=== PATIENT | female | born 1960 | race Asian ===

== ENCOUNTER 2016-10-14 09:33 | Emergency (ER) | payer MEDICAID, MEDICARE ==
[~2016-10-14] VITALS: Ht 152.4 cm; Wt 94.5 kg
[~2016-10-14 09:33] MED LIST: ALBU8HFA IH; AMBR5TAB3 PO; AMLO-512 PO; BUDE10.22 IH; CARV10CR PO; FURO40 PO; LOSA50TA37 PO; PRAV20TA4 PO; SYMB8060 IH; TADA20TA31 PO; WARF2.5 PO
[2016-10-14] MEDS ORDERED: DEXAMETHASONE SOD PHOS 4 MG/ML 5 ML VIAL IM ONE (10:15)
[2016-10-14] MEDS ORDERED: DiphenhydrAMINE HCL 50 MG/ML VIAL IM ONE (10:15)
[2016-10-14 10:48] VITALS: BP 114/80
== END 2016-10-14 10:53 | disposition home or self-care (01) ==
LOC: EMS 09:35
DX: T78.3XXA Angioneurotic edema, initial encounter (principal); L29.9 Pruritus, unspecified; E11.9 Type 2 diabetes mellitus without complications; I51.9 Heart disease, unspecified; I11.9 Hypertensive heart disease without heart failure; J44.9 Chronic obstructive pulmonary disease, unspecified; J45.909 Unspecified asthma, uncomplicated; F17.210 Nicotine dependence, cigarettes, uncomplicated; M10.9 Gout, unspecified; Z90.710 Acquired absence of both cervix and uterus; X58.XXXA Exposure to other specified factors, initial encounter; Z85.42 Personal history of malignant neoplasm of other parts of uterus; Y93.89 Activity, other specified; Y92.89 Other specified places as the place of occurrence of the external cause; Y99.9 Unspecified external cause status
CPT/HCPCS: 82962; 96372; 99284; J1100; J1200

== ENCOUNTER 2017-08-30 14:11 | Inpatient (IN) | payer MEDICARE ==
[~2017-08-30] VITALS: Ht 149.9 cm; Wt 100.0 kg
[~2017-08-30 14:11] MED LIST changes: -ALBU8HFA IH; -AMBR5TAB3 PO; -BUDE10.22 IH; -CARV10CR PO; -LOSA50TA37 PO; -PRAV20TA4 PO; -SYMB8060 IH; -TADA20TA31 PO; -WARF2.5 PO
[2017-08-30] MEDS ORDERED: ALLO100T PO (14:22)
[2017-08-30] MEDS ORDERED: POTA99TA25 PO (14:22)
[2017-08-30 14:24] LABS: GLUCOSE,POINT OF CARE 245 MG/DL (70-110)
[2017-08-30 15:51] LABS: APPEARANCE,URINE CLOUDY (CLEAR); BILIRUBIN,URINE NEGATIVE (NEGATIVE); GLUCOSE, URINE (UA) NEGATIVE (NEGATIVE); KETONES,URINE NEGATIVE (NEGATIVE); LEUKOCYTE ESTERASE ,URINE SMALL (NEGATIVE); NITRATE,URINE NEGATIVE (NEGATIVE); OCCULT BLOOD,URINE NEGATIVE (NEGATIVE); PH,URINE 6.5 (5.0-8.0); PROTEIN,URINE SEE CONFIRM (NEGATIVE)
[2017-08-30 15:57] LABS: SULFOSALICYLIC ACID,URINE 2+ (Negative)
[2017-08-30 15:58] LABS: RBC,URINE 0-2 /HPF (0-2)
[2017-08-30 15:59] LABS: SQUAMOUS EPITHELIAL CELL,UR Few /LPF (None Seen)
[2017-08-30 16:00] LABS: BACTERIA,URINE Moderate /HPF (None Seen)
[2017-08-30 16:22] LABS: EOSINOPHILS % (AUTO) 1.8 % (1.0-6.0); HEMATOCRIT 51.6 % (36-46); HEMOGLOBIN 16.8 g/dL (12.0-16.0); LYMPHOCYTES % (AUTO) 15.2 % (22.0-44.0); MEAN CORPUSCULAR HEMOGLOBIN 26.6 pg (26.0-34.0); MEAN CORPUSCULAR HGB CONC 32.6 G/dL (31.0-37.0); MEAN CORPUSCULAR VOLUME 81 fL (80-100); MONOCYTES # (AUTO) 0.8 K/uL (0.1-1.0); MONOCYTES % (AUTO) 11.3 % (2.0-9.0); NEUTROPHILS # (AUTO) 4.7 K/uL (1.8-7.7); NEUTROPHILS % (AUTO) 70.7 % (40.0-70.0); PLATELET COUNT (AUTO) 232 K/uL (150-450); RED BLOOD CELL COUNT(AUTO) 6.34 MIL/uL (4.00-5.20); RED CELL DISTRIBUTION WIDTH 16.7 % (11.5-14.5)
[2017-08-30 16:33] LABS: PROTHROMBIN TIME 10.7 SEC (9.4-11.6)
[2017-08-30 16:35] LABS: ANION GAP 4 mmol/L (8-16); CALCIUM, TOTAL 8.8 mg/dL (8.8-10.5); CARBON DIOXIDE 33 mmol/L (22-29); CHLORIDE 102 mmol/L (98-107); CREATININE 1.83 mg/dL (0.60-1.30); GLOMERULAR FILTR. RATE CALC 28 mL/min (>60); GLUCOSE,RANDOM 122 mg/dL (70-110); POTASSIUM 3.3 mmol/L (3.5-5.1); SODIUM SERUM 139 mmol/L (136-145); UREA NITROGEN, BLOOD 33 mg/dL (7-18)
[2017-08-30 16:41] LABS: ALANINE AMINOTRANSFERASE 28 U/L (12-78); ALBUMIN 3.1 g/dL (3.4-5.0); ALKALINE PHOSPHATASE 141 U/L (46-116); ASPARTATE AMINOTRANSFERASE 31 U/L (15-37); BILIRUBIN,TOTAL 0.8 mg/dL (0.1-1.0); CREATINE KINASE, TOTAL 71 U/L (26-192); TOTAL PROTEIN, SERUM 7.9 g/dL (6.4-8.2)
[2017-08-30 16:49] LABS: B-TYPE NATRIURETIC PEPTIDE 231 pg/mL (0-100)
[2017-08-30] MEDS ORDERED: LEVOFLOXACIN 500 MG/D5% WATER 100 ML IV ONE (18:15)
[2017-08-30] MEDS ORDERED: IPRATROPIUM BROMIDE 0.5 MG/2.5 ML NEB SOLUTION NEB PRN (18:45)
[2017-08-30] MEDS ORDERED: ONDANSETRON HCL 4 MG/2 ML VIAL IVP PRN (18:45)
[2017-08-30] MEDS ORDERED: ALBUTEROL SULFATE 2.5 MG/0.5 ML NEB SOLUTION NEB PRN (18:45)
[2017-08-30] MEDS ORDERED: MAGNESIUM HYDROXIDE SUSPENSION 30 ML UDCUP PO PRN (18:45)
[2017-08-30] MEDS ORDERED: 0.9% SODIUM CHLORIDE 10 ML SYRINGE IVP PRN (18:45)
[2017-08-30] MEDS ORDERED: INSULIN LISPRO 100 UNITS/ML SQ PRN (19:00)
[2017-08-30] MEDS ORDERED: DEXTROSE 50%-WATER 25 GM/50 ML SYRINGE IVP PRN (19:00)
[2017-08-30 20:18] VITALS: BP 151/76
[2017-08-30] MEDS: HEPARIN SODIUM,PORCINE 5,000 UNITS/ML VIAL SQ SCH (20:26)
[2017-08-30] MEDS: ATORVASTATIN CALCIUM 40 MG TABLET PO SCH (20:27)
[2017-08-30] MEDS: ASPIRIN 81 MG CHEWABLE TABLET PO SCH (20:27)
[2017-08-30 23:36] VITALS: BP 103/63
[2017-08-31] VITALS (8 sets, daily range): BP systolic 110–143; BP diastolic 66–89
[2017-08-31 07:13] LABS: BASOPHILS % (AUTO) 0.9 % (0.0-2.0); EOSINOPHILS % (AUTO) 2.8 % (1.0-6.0); HEMATOCRIT 48.2 % (36-46); HEMOGLOBIN 15.7 g/dL (12.0-16.0); LYMPHOCYTES # (AUTO) 1.1 K/uL (1.0-4.8); LYMPHOCYTES % (AUTO) 21.2 % (22.0-44.0); MEAN CORPUSCULAR HEMOGLOBIN 26.8 pg (26.0-34.0); MEAN CORPUSCULAR HGB CONC 32.6 G/dL (31.0-37.0); MEAN CORPUSCULAR VOLUME 82 fL (80-100); MONOCYTES # (AUTO) 0.6 K/uL (0.1-1.0); MONOCYTES % (AUTO) 11.8 % (2.0-9.0); NEUTROPHILS # (AUTO) 3.3 K/uL (1.8-7.7); NEUTROPHILS % (AUTO) 63.3 % (40.0-70.0); PLATELET COUNT (AUTO) 207 K/uL (150-450); RED BLOOD CELL COUNT(AUTO) 5.87 MIL/uL (4.00-5.20)
[2017-08-31 07:24] LABS: HEMOGLOBIN A1C 6.3 % (4.5-6.2)
[2017-08-31 07:56] LABS: ALBUMIN 2.8 g/dL (3.4-5.0); BILIRUBIN,TOTAL 0.7 mg/dL (0.1-1.0); CALCIUM, TOTAL 8.3 mg/dL (8.8-10.5); CHOL/HDL RATIO 2.9 (3.9-5.7); CREATININE 1.66 mg/dL (0.60-1.30); FREE T4 (FREE THYROXINE) 1.05 ng/dL (0.76-1.46); MAGNESIUM 2.2 mg/dL (1.80-2.40); POTASSIUM 3.4 mmol/L (3.5-5.1)
[2017-08-31] MEDS: AmLODIPine BESYLATE 10 MG TABLET PO SCH (09:10)
[2017-08-31] MEDS: ATORVASTATIN CALCIUM 40 MG TABLET PO SCH (09:10)
[2017-08-31] MEDS: ALLOPURINOL 100 MG TABLET PO SCH (09:10)
[2017-08-31] MEDS: PANTOPRAZOLE SODIUM 40 MG DR TABLET PO SCH (09:10)
[2017-08-31] MEDS: ASPIRIN 81 MG CHEWABLE TABLET PO SCH (09:10)
[2017-08-31] MEDS: HEPARIN SODIUM,PORCINE 5,000 UNITS/ML VIAL SQ SCH ×2 (09:11→20:29)
[2017-08-31] MEDS: FUROSEMIDE 20 MG TABLET PO SCH (09:14)
[2017-08-31] MEDS ORDERED: *CLINICAL-LEVOFLOXACIN IVPB DOSING CLINICAL ONE (14:30)
[2017-08-31] MEDS ORDERED: FURO20 PO (14:31)
[2017-08-31] MEDS ORDERED: SODIUM CHLORIDE 0.9% 100 ML ONE (15:50)
[2017-08-31] MEDS ORDERED: LEVOFLOXACIN 250 MG/D5% WATER 50 ML IV SCH (16:00)
[2017-08-31 20:43] LABS: GLUCOMETER DEV NAME(LOC) 5S 1M; GLUCOSE,POINT OF CARE 111 MG/DL (70-110)
[2017-08-31 20:43] LABS: GLUCOMETER DEV NAME(LOC) 5S 2Q; GLUCOSE,POINT OF CARE 100 MG/DL (70-110)
[2017-08-31 20:44] LABS: GLUCOMETER DEV NAME(LOC) 5S 1M; GLUCOSE,POINT OF CARE 96 MG/DL (70-110)
[2017-08-31 20:44] LABS: GLUCOMETER DEV NAME(LOC) 5S 1M; GLUCOSE,POINT OF CARE 142 MG/DL (70-110)
[2017-08-31] MEDS: ACETAMINOPHEN 325 MG TABLET PO PRN (21:40)
[2017-09-01 03:44] VITALS: BP 128/76
[2017-09-01] MEDS: ACETAMINOPHEN 325 MG TABLET PO PRN (05:00)
[2017-09-01 07:18] VITALS: BP 132/71
[2017-09-01] MEDS: ALLOPURINOL 100 MG TABLET PO SCH (08:33)
[2017-09-01] MEDS: HEPARIN SODIUM,PORCINE 5,000 UNITS/ML VIAL SQ SCH (08:33)
[2017-09-01] MEDS: ATORVASTATIN CALCIUM 40 MG TABLET PO SCH (08:33)
[2017-09-01] MEDS: AmLODIPine BESYLATE 10 MG TABLET PO SCH (08:33)
[2017-09-01] MEDS: ASPIRIN 81 MG CHEWABLE TABLET PO SCH (08:33)
[2017-09-01] MEDS: FUROSEMIDE 20 MG TABLET PO SCH (08:33)
[2017-09-01] MEDS: PANTOPRAZOLE SODIUM 40 MG DR TABLET PO SCH (08:34)
[2017-09-01 08:42] LABS: CALCIUM, TOTAL 8.3 mg/dL (8.8-10.5); CREATININE 1.63 mg/dL (0.60-1.30); POTASSIUM 3.5 mmol/L (3.5-5.1)
[2017-09-01 11:54] VITALS: BP 122/62
[2017-09-01 12:24] LABS: GLUCOMETER DEV NAME(LOC) 5S 2Q; GLUCOSE,POINT OF CARE 68 MG/DL (70-110)
[2017-09-01 12:24] LABS: GLUCOMETER DEV NAME(LOC) 5S 2Q; GLUCOSE,POINT OF CARE 109 MG/DL (70-110)
[2017-09-01 12:25] LABS: GLUCOMETER DEV NAME(LOC) 5S 2Q; GLUCOSE,POINT OF CARE 131 MG/DL (70-110)
[2017-09-01] MEDS ORDERED: LEVO250 PO (12:26)
== END 2017-09-01 13:50 | disposition home or self-care (01) | DRG 312 ==
LOC: EMS 14:13 → 5S 18:06 → INTOOBSV 18:06 → OBSVTOIN 08-31 17:30
PROVIDERS: ADMIT Internal Medicine; ATTEND Internal Medicine
DX: R55 Syncope and collapse (principal); J96.11 Chronic respiratory failure with hypoxia; I27.20 Pulmonary hypertension, unspecified; I11.0 Hypertensive heart disease with heart failure; I50.9 Heart failure, unspecified; Z99.81 Dependence on supplemental oxygen; Z68.41 Body mass index [BMI] 40.0-44.9, adult; N39.0 Urinary tract infection, site not specified; M10.9 Gout, unspecified; E11.9 Type 2 diabetes mellitus without complications; I25.10 Atherosclerotic heart disease of native coronary artery without angina pectoris; E66.9 Obesity, unspecified; J44.9 Chronic obstructive pulmonary disease, unspecified; M19.90 Unspecified osteoarthritis, unspecified site; F17.210 Nicotine dependence, cigarettes, uncomplicated; Z90.710 Acquired absence of both cervix and uterus; Z88.1 Allergy status to other antibiotic agents; Z88.8 Allergy status to other drugs, medicaments and biological substances; Z79.899 Other long term (current) drug therapy; Z85.42 Personal history of malignant neoplasm of other parts of uterus; Z82.49 Family history of ischemic heart disease and other diseases of the circulatory system; Z83.3 Family history of diabetes mellitus
CPT/HCPCS: 70450; 83036; 83735; 84100; 84145; 84439; 84443; 87086; 93005; 93306; 96365; 96366; 96372; 97116; 97162; 99285; J1644; J1956; J7050

== ENCOUNTER 2018-10-20 22:05 | Inpatient (IN) | payer MEDICARE ==
[~2018-10-20] VITALS: Ht 152.4 cm; Wt 107.0 kg
[~2018-10-20 22:05] MED LIST changes: +ALLO100T PO; -AMLO-512 PO; +AMLO10TA7 PO; +FURO20 PO; -FURO40 PO; +LEVO250 PO; +POTA99TA25 PO
[2018-10-20] MEDS ORDERED: LOSA25TA41 PO (22:27)
[2018-10-20] MEDS ORDERED: SILD20TA PO (22:27)
[2018-10-20] MEDS ORDERED: MACI10TA PO (22:27)
[2018-10-20] MEDS ORDERED: BUTE12CR TP (22:49)
[2018-10-20] MEDS ORDERED: DILT180C94 PO (22:49)
[2018-10-20] MEDS ORDERED: FUROSEMIDE 40 MG/4 ML VIAL IVP ONE (23:30)
[2018-10-20 23:46] LABS: APPEARANCE,URINE CLOUDY (CLEAR); BILIRUBIN,URINE NEGATIVE (NEGATIVE); GLUCOSE, URINE (UA) NEGATIVE (NEGATIVE); KETONES,URINE NEGATIVE (NEGATIVE); LEUKOCYTE ESTERASE ,URINE NEGATIVE (NEGATIVE); NITRATE,URINE NEGATIVE (NEGATIVE); OCCULT BLOOD,URINE NEGATIVE (NEGATIVE); PROTEIN,URINE SEE CONFIRM (NEGATIVE)
[2018-10-20 23:53] LABS: SULFOSALICYLIC ACID,URINE 1+ (Negative)
[2018-10-20 23:54] LABS: BACTERIA,URINE None Seen /HPF (None Seen); RBC,URINE None Seen /HPF (0-2); SQUAMOUS EPITHELIAL CELL,UR Many /LPF (None Seen)
[2018-10-21 00:14] LABS: MONOCYTES # (AUTO) 0.5 K/uL (0.1-1.0); NEUTROPHILS # (AUTO) 5.6 K/uL (1.8-7.7)
[2018-10-21] MEDS ORDERED: NITROGLYCERIN 2% (1 GM=INCH) PACKET TP ONE (00:15)
[2018-10-21 00:18] LABS: BASOPHILS % (AUTO) 1.1 % (0.0-2.0); EOSINOPHILS % (AUTO) 1.7 % (1.0-6.0); HEMATOCRIT 53.4 % (36-46); HEMOGLOBIN 16.7 g/dL (12.0-16.0); LYMPHOCYTES % (AUTO) 13.7 % (22.0-44.0); MEAN CORPUSCULAR HEMOGLOBIN 28.2 pg (26.0-34.0); MEAN CORPUSCULAR HGB CONC 31.3 G/dL (31.0-37.0); MEAN CORPUSCULAR VOLUME 90 fL (80-100); MONOCYTES % (AUTO) 7.5 % (2.0-9.0); RED BLOOD CELL COUNT(AUTO) 5.93 MIL/uL (4.00-5.20); RED CELL DISTRIBUTION WIDTH 16.7 % (11.5-14.5)
[2018-10-21 00:21] LABS: CALCIUM, TOTAL 9.3 mg/dL (8.8-10.5); CREATININE 1.77 mg/dL (0.60-1.30); POTASSIUM 3.7 mmol/L (3.5-5.1)
[2018-10-21 00:27] LABS: ALBUMIN 3.6 g/dL (3.4-5.0); BILIRUBIN,TOTAL 0.6 mg/dL (0.1-1.0); TOTAL PROTEIN, SERUM 7.7 g/dL (6.4-8.2)
[2018-10-21 00:37] LABS: PLATELET COUNT (AUTO) 175 K/uL (150-450)
[2018-10-21] MEDS ORDERED: ZOLPIDEM TARTRATE 5 MG TABLET PO PRN (01:00)
[2018-10-21] MEDS ORDERED: MAGNESIUM HYDROXIDE SUSPENSION 30 ML UDCUP PO PRN (01:00)
[2018-10-21] MEDS ORDERED: BISACODYL 10 MG RECTAL RECTAL SUPPOSITORY PR PRN (01:00)
[2018-10-21] MEDS ORDERED: MORPHINE SULFATE 2 MG/ML SYRINGE IVP PRN (01:00)
[2018-10-21] MEDS ORDERED: ACETAMINOPHEN 325 MG TABLET PO PRN (01:00)
[2018-10-21] MEDS ORDERED: ALBUTEROL SULFATE 2.5 MG/0.5 ML NEB SOLUTION NEB PRN (01:00)
[2018-10-21] MEDS ORDERED: ONDANSETRON HCL 4 MG/2 ML VIAL IVP PRN (01:00)
[2018-10-21] MEDS ORDERED: HYDROCODONE/ACETAMINOPHEN 5-325 MG TABLET PO PRN (01:00)
[2018-10-21] MEDS ORDERED: IPRATROPIUM BROMIDE 0.5 MG/2.5 ML NEB SOLUTION NEB PRN (01:00)
[2018-10-21] MEDS: AZITHROMYCIN 500 MG/NS 250 ML IV SCH (01:23)
[2018-10-21] MEDS: ALBUTEROL SULFATE 2.5 MG/0.5 ML NEB SOLUTION NEB SCH ×4 (02:57→20:16)
[2018-10-21] MEDS: IPRATROPIUM BROMIDE 0.5 MG/2.5 ML NEB SOLUTION NEB SCH ×4 (02:57→20:16)
[2018-10-21] MEDS: MethylPREDNISolone SOD SUCC 125 MG/2 ML VIAL IVP SCH ×3 (05:29→17:38)
[2018-10-21] MEDS: HEPARIN SODIUM,PORCINE 5,000 UNITS/ML VIAL SQ SCH ×2 (07:22→15:50)
[2018-10-21 08:04] LABS: GLUCOSE,POINT OF CARE 118 MG/DL (70-110)
[2018-10-21] MEDS: PANTOPRAZOLE SODIUM 40 MG DR TABLET PO SCH (08:38)
[2018-10-21] MEDS: DOCUSATE SODIUM 100 MG CAPSULE PO SCH ×3 (08:38→21:00)
[2018-10-21] MEDS: BENZONATATE 100 MG CAPSULE PO SCH ×3 (08:38→20:22)
[2018-10-21] MEDS: AmLODIPine BESYLATE 10 MG TABLET PO SCH (08:56)
[2018-10-21] MEDS: SILDENAFIL CITRATE 20 MG TABLET PO SCH ×3 (08:59→20:22)
[2018-10-21] MEDS: ALLOPURINOL 100 MG TABLET PO SCH ×2 (08:59→20:22)
[2018-10-21] MEDS: LOSARTAN POTASSIUM 25 MG TABLET PO SCH (08:59)
[2018-10-21] MEDS: DILTIAZEM HCL CD 180 MG ER CAPSULE PO SCH (09:00)
[2018-10-21] MEDS ORDERED: FUROSEMIDE 20 MG TABLET PO SCH (09:00)
[2018-10-21] MEDS: GuaiFENesin SR 600 MG ER TABLET PO SCH ×2 (09:00→20:22)
[2018-10-21] MEDS: BUDESONIDE 0.5 MG/2 ML NEB SOLUTION NEB SCH ×2 (09:25→20:16)
[2018-10-21] MEDS ORDERED: NICARDipine 20 MG/DEXT,ISO-OSM 200 ML IV PRN (11:15)
[2018-10-21 16:00] VITALS: BP 161/98
[2018-10-21 20:00] VITALS: BP 161/103
[2018-10-21 22:45] VITALS: BP 131/72
[2018-10-21 23:45] VITALS: BP 153/82
[2018-10-22] VITALS (7 sets, daily range): BP systolic 134–155; BP diastolic 70–93
[2018-10-22 00:07] LABS: CALCIUM, TOTAL 9.2 mg/dL (8.8-10.5); CREATININE 1.72 mg/dL (0.60-1.30); POTASSIUM 3.3 mmol/L (3.5-5.1)
[2018-10-22 00:11] LABS: MAGNESIUM 1.9 mg/dL (1.80-2.40); PHOSPHORUS 3.4 mg/dL (2.5-4.9)
[2018-10-22] MEDS: MethylPREDNISolone SOD SUCC 125 MG/2 ML VIAL IVP SCH ×4 (00:11→18:40)
[2018-10-22] MEDS: HEPARIN SODIUM,PORCINE 5,000 UNITS/ML VIAL SQ SCH ×3 (00:12→18:40)
[2018-10-22] MEDS ORDERED: POTASSIUM CHL 10 MEQ/WATER 50 ML IV PRN ×2 (00:30)
[2018-10-22] MEDS ORDERED: MAGNESIUM SULFATE 1 GM in DEXTROSE 5%-WATER 50 ML IV ONE (00:30)
[2018-10-22] MEDS ORDERED: POTASSIUM CHLORIDE 20 MEQ ER TABLET PO PRN ×2 (00:30)
[2018-10-22] MEDS ORDERED: SODIUM CHLORIDE 0.9% 0 ML ONE (00:35)
[2018-10-22] MEDS ORDERED: SODIUM CHLORIDE 0.9% 250 ML IV ONE (00:35)
[2018-10-22] MEDS: AZITHROMYCIN 500 MG/NS 250 ML IV SCH (00:53)
[2018-10-22] MEDS: ALBUTEROL SULFATE 2.5 MG/0.5 ML NEB SOLUTION NEB SCH ×4 (02:36→20:00)
[2018-10-22] MEDS: IPRATROPIUM BROMIDE 0.5 MG/2.5 ML NEB SOLUTION NEB SCH ×4 (02:36→20:00)
[2018-10-22 05:20] LABS: CALCIUM, TOTAL 9.4 mg/dL (8.8-10.5); CREATININE 1.64 mg/dL (0.60-1.30); MAGNESIUM 2.3 mg/dL (1.80-2.40); POTASSIUM 3.6 mmol/L (3.5-5.1)
[2018-10-22 05:22] LABS: BASOPHILS % (AUTO) 0.1 % (0.0-2.0); EOSINOPHILS % (AUTO) 0 % (1.0-6.0); HEMATOCRIT 50.6 % (36-46); HEMOGLOBIN 15.9 g/dL (12.0-16.0); LYMPHOCYTES # (AUTO) 0.4 K/uL (1.0-4.8); LYMPHOCYTES % (AUTO) 3.8 % (22.0-44.0); MEAN CORPUSCULAR HEMOGLOBIN 28.3 pg (26.0-34.0); MEAN CORPUSCULAR HGB CONC 31.4 G/dL (31.0-37.0); MEAN CORPUSCULAR VOLUME 90 fL (80-100); MONOCYTES # (AUTO) 0.1 K/uL (0.1-1.0); MONOCYTES % (AUTO) 0.9 % (2.0-9.0); NEUTROPHILS # (AUTO) 9.2 K/uL (1.8-7.7); PLATELET COUNT (AUTO) 178 K/uL (150-450); RED BLOOD CELL COUNT(AUTO) 5.63 MIL/uL (4.00-5.20); RED CELL DISTRIBUTION WIDTH 17.3 % (11.5-14.5)
[2018-10-22 05:23] LABS: NEUTROPHILS % (AUTO) 95.2 % (40.0-70.0)
[2018-10-22] MEDS: PANTOPRAZOLE SODIUM 40 MG DR TABLET PO SCH (08:35)
[2018-10-22] MEDS: AmLODIPine BESYLATE 10 MG TABLET PO SCH (08:36)
[2018-10-22] MEDS: DILTIAZEM HCL CD 180 MG ER CAPSULE PO SCH (08:36)
[2018-10-22] MEDS: GuaiFENesin SR 600 MG ER TABLET PO SCH (08:36)
[2018-10-22] MEDS: ALLOPURINOL 100 MG TABLET PO SCH (08:36)
[2018-10-22] MEDS: LOSARTAN POTASSIUM 25 MG TABLET PO SCH (08:37)
[2018-10-22] MEDS: SILDENAFIL CITRATE 20 MG TABLET PO SCH ×2 (08:37→18:24)
[2018-10-22] MEDS: DOCUSATE SODIUM 100 MG CAPSULE PO SCH (08:39)
[2018-10-22] MEDS: BENZONATATE 100 MG CAPSULE PO SCH ×2 (08:39→18:40)
[2018-10-22] MEDS: BUDESONIDE 0.5 MG/2 ML NEB SOLUTION NEB SCH (10:31)
[2018-10-22] MEDS ORDERED: *CLINICAL-LEVOFLOXACIN IVPB DOSING CLINICAL ONE (18:45)
[2018-10-22] MEDS ORDERED: LEVOFLOXACIN 500 MG/D5% WATER 100 ML IV SCH (19:00)
[2018-10-22] MEDS ORDERED: FUROSEMIDE 20 MG/2 ML VIAL IVP SCH (21:00)
== END 2018-10-22 20:15 | disposition short-term general hospital (02) | DRG 304 ==
LOC: EMS 22:07 → ICU 10-21 10:31 → 5S 10-22 17:46
PROVIDERS: ADMIT Internal Medicine; ATTEND Internal Medicine
DX: I16.0 Hypertensive urgency (principal); J96.00 Acute respiratory failure, unspecified whether with hypoxia or hypercapnia; J44.1 Chronic obstructive pulmonary disease with (acute) exacerbation; Z68.42 Body mass index [BMI] 45.0-49.9, adult; I13.0 Hypertensive heart and chronic kidney disease with heart failure and stage 1 through stage 4 chronic kidney disease, or unspecified chronic kidney disease; E11.22 Type 2 diabetes mellitus with diabetic chronic kidney disease; E66.9 Obesity, unspecified; F17.210 Nicotine dependence, cigarettes, uncomplicated; M10.9 Gout, unspecified; M19.90 Unspecified osteoarthritis, unspecified site; I27.20 Pulmonary hypertension, unspecified; I50.9 Heart failure, unspecified; N18.9 Chronic kidney disease, unspecified; Z88.1 Allergy status to other antibiotic agents; Z79.899 Other long term (current) drug therapy; Z85.42 Personal history of malignant neoplasm of other parts of uterus; Z90.710 Acquired absence of both cervix and uterus; Z98.51 Tubal ligation status
CPT/HCPCS: 51701; 83735; 84100; 84132; 87081; 87086; 93005; 93306; 94640; G0378; J0456; J1644; J1940; J1956; J2930; J3475; J7050; J7060